=== PATIENT | female | born 1985 ===

== ENCOUNTER 2022-08-21 16:41 | Outpatient (CLI) ==
[~2022-08-21] VITALS: Ht 162.6 cm; Wt 84.6 kg
[2022-08-21 17:07] VITALS: BP 115/77
[2022-08-21] MEDS ORDERED: PRENTAB9 PO (17:16)
[2022-08-21] MEDS ORDERED: ASPI81TA26 PO (17:48)
[2022-08-21] MEDS ORDERED: FLUCONAZOLE 50MG TABLET PO ONE (18:00)
[2022-08-21 18:04] LABS: APPEARANCE, URINE CLEAR (CLEAR); BACTERIA, URINE AUTO 1+ (NEGATIVE); BILIRUBIN, URINE AUTO NEGATIVE (NEGATIVE); BLOOD, URINE BLOOD NEGATIVE (NEGATIVE); COLOR, URINE YELLOW (YELLOW); GLUCOSE, URINE (UA) AUTO NEGATIVE (NEGATIVE); KETONE, URINE AUTO NEGATIVE (NEGATIVE); LEUKOCYTE ESTERASE, URINE AUTO NEGATIVE (NEGATIVE); MUCUS, URINE SMALL (NEGATIVE); NITRITE, URINE AUTO NEGATIVE (NEGATIVE); PROTEIN, URINE AUTO NEGATIVE (NEGATIVE); RBC, URINE AUTO 0 /HPF (0-3); SPECIFIC GRAVITY URINE AUTO 1.011 (1.002-1.035); SQUAMOUS EPITHELIAL CELL UR AU 6 /HPF (0-6); UROBILINOGEN, URINE AUTO 0.2 mg/dL (0.0-2.0); WBC, URINE AUTO 1 /HPF (0-3)
== END 2022-08-21 18:20 | disposition home or self-care (01) ==
LOC: M LDO 16:41
PROVIDERS: ATTEND Advanced Practice Midwife
DX: O23.593 Infection of other part of genital tract in pregnancy, third trimester (principal); Z3A.29 29 weeks gestation of pregnancy; O26.893 Other specified pregnancy related conditions, third trimester; M79.7 Fibromyalgia; Z88.5 Allergy status to narcotic agent; Z79.82 Long term (current) use of aspirin; O09.523 Supervision of elderly multigravida, third trimester
CPT/HCPCS: 59025; 81001; G0463

== ENCOUNTER 2022-10-13 01:33 | Outpatient (CLI) | payer OTHER ==
[~2022-10-13] VITALS: Ht 162.6 cm; Wt 85.3 kg
[~2022-10-13 01:33] MED LIST: ASPI81TA26 PO; PRENTAB9 PO
[2022-10-13 01:50] VITALS: BP 119/81; O2SAT 100
[2022-10-13] MEDS ORDERED: HOME MED LIST COMPLETE! XX SCH (02:40)
[2022-10-13] MEDS ORDERED: TUMS500C PO (02:40)
[2022-10-13] MEDS ORDERED: CALCIUM CARBONATE 500 MG CHEW U/D PO ONE (03:00)
[2022-10-13 04:32] VITALS: BP 95/67
== END 2022-10-13 04:59 | disposition home or self-care (01) ==
LOC: M LDO 01:33
PROVIDERS: ATTEND Obstetrics & Gynecology
DX: O47.1 False labor at or after 37 completed weeks of gestation (principal); O09.523 Supervision of elderly multigravida, third trimester; Z3A.37 37 weeks gestation of pregnancy
CPT/HCPCS: 59025; G0463

== ENCOUNTER 2022-10-25 14:10 | Inpatient (IN) | payer OTHER ==
[2022-10-25] VITALS (15 sets, daily range): BP systolic 103–126; BP diastolic 61–79
[~2022-10-25] VITALS: Ht 162.6 cm; Wt 85.1 kg
[~2022-10-25 14:10] MED LIST changes: +TUMS500C PO
[2022-10-25] MEDS ORDERED: HOME MED LIST COMPLETE! XX SCH (14:30)
[2022-10-25] MEDS ORDERED: LACTATED RINGER'S 1000 ML IV STA (14:33)
[2022-10-25] MEDS ORDERED: LR 1,000 ML IV SCH ×2 (14:35→16:50)
[2022-10-25] MEDS ORDERED: METHYLERGONOVINE MALEATE 0.2MG/ML 1ML VIAL IM PRN (14:35)
[2022-10-25] MEDS ORDERED: TRANEXAMIC ACID INJection 1,000 MG in NS 100 ML IV PRN (14:35)
[2022-10-25] MEDS ORDERED: OXYTOCIN DRIP 30 UNITS in IV 1 EA IV PRN ×4 (14:35)
[2022-10-25] MEDS ORDERED: LIDOCAINE 1% MDV 20ML VIAL INFIL PRN (14:35)
[2022-10-25] MEDS ORDERED: OXYTOCIN DRIP 30 UNITS in IV 1 EA IV SCH (16:50)
[2022-10-25 17:01] LABS: HEMOGLOBIN 12.8 g/dl (12.0-15.5); MEAN CORPUSCULAR HEMOGLOBIN 29.8 pg (27.0-33.0); MEAN CORPUSCULAR HGB CONC 34.6 g/dl (32.0-36.5); PLATELET COUNT, AUTOMATED 269 10^3/uL (150-450); WHITE BLOOD COUNT 12.9 10^3/uL (4.0-10.0)
[2022-10-25] MEDS ORDERED: OXYMETAZOLINE 0.05% NASAL SPRAY (AFRIN) PRN (18:10)
[2022-10-25] MEDS ORDERED: IBUPROFEN 600MG TAB PO PRN (23:50)
[2022-10-25] MEDS ORDERED: RHOGAM 300MCG (1500IU) INJ IM SCH (23:50)
[2022-10-25] MEDS ORDERED: ACETAMINOPHEN TAB 650MG DOSE (2X325MG) PO PRN (23:50)
[2022-10-25] MEDS ORDERED: METHYLERGONOVINE MALEATE 0.2 MG TAB PO PRN (23:50)
[2022-10-25] MEDS ORDERED: ANUSOL HC CREAM 30GM TOP PRN (23:50)
[2022-10-25] MEDS ORDERED: ACETAMINOPHEN 500 MG TAB PO PRN (23:50)
[2022-10-25] MEDS ORDERED: DIBUCAINE 1% OINTMENT 30GM TOP PRN (23:50)
[2022-10-25] MEDS ORDERED: IBUPROFEN 800 MG TAB PO PRN (23:50)
[2022-10-26 00:02] VITALS: BP 115/66
[2022-10-26 00:17] VITALS: BP 123/73
[2022-10-26 00:32] VITALS: BP 119/72
[2022-10-26 01:15] VITALS: BP 110/65
[2022-10-26 06:00] VITALS: BP 129/78
[2022-10-26 06:59] LABS: HEMATOCRIT 34.5 % (36.0-47.0); HEMOGLOBIN 12.1 g/dl (12.0-15.5); MEAN CORPUSCULAR HEMOGLOBIN 29.9 pg (27.0-33.0); MEAN CORPUSCULAR HGB CONC 35.1 g/dl (32.0-36.5); MEAN CORPUSCULAR VOLUME 85.2 fl (80.0-96.0); PLATELET COUNT, AUTOMATED 263 10^3/uL (150-450); RED BLOOD COUNT 4.05 10^6/uL (4.00-5.40)
[2022-10-26] MEDS: DOCUSATE SODIUM 100MG CAPSULE PO PRN (08:33)
[2022-10-26] MEDS: PRENATAL VITAMINS CHEWABLE TABLET PO SCH (08:33)
[2022-10-26 18:00] VITALS: BP 107/71; O2SAT 99
[2022-10-27 06:00] VITALS: BP 108/72
[2022-10-27] MEDS: PRENATAL VITAMINS CHEWABLE TABLET PO SCH (07:51)
[2022-10-27] MEDS: DOCUSATE SODIUM 100MG CAPSULE PO PRN (07:51)
[2022-10-27] MEDS ORDERED: MEASLES,MUMPS,RUBELLA VACCINE INJ (MMR-II) SC.IMMUN ONE (09:00)
[2022-10-27] MEDS ORDERED: IBUP-1022 PO (09:49)
[2022-10-27] MEDS ORDERED: COLA100C5 PO (09:49)
[2022-10-27] MEDS ORDERED: ACET1TAB55 PO (09:49)
== END 2022-10-27 11:50 | disposition home or self-care (01) | DRG 807 ==
LOC: M LDI 14:10 → M OBS 10-26 01:15
PROVIDERS: ADMIT Obstetrics & Gynecology; ATTEND Obstetrics & Gynecology
PROC: 10E0XZZ Delivery of Products of Conception, External Approach (ICD-10-PCS; principal; 2022-10-25)
PROC: 10907ZC Drainage of Amniotic Fluid, Therapeutic from Products of Conception, Via Natural or Artificial Opening (ICD-10-PCS; 2022-10-25)
DX: O64.5XX0 Obstructed labor due to compound presentation, not applicable or unspecified (principal); Z37.0 Single live birth; Z3A.39 39 weeks gestation of pregnancy